=== PATIENT | male | born 1995 | race Caucasian/White ===

== ENCOUNTER 2018-09-12 03:46 | Emergency (ER) | payer SELFPAY ==
[~2018-09-12] VITALS: Ht 182.9 cm; Wt 95.0 kg
[2018-09-12 03:50] VITALS: BP 130/82; PULSE 86; RESP 18; Ht 182.9 cm; Wt 95.0 kg
== END 2018-09-12 05:00 | disposition left against medical advice (07) ==
LOC: FTE 03:46
DX: Z53.21 Procedure and treatment not carried out due to patient leaving prior to being seen by health care provider (principal)